=== PATIENT | male | born 2005 | race Caucasian/White ===

== ENCOUNTER 2024-12-08 18:05 | Inpatient (IN) | payer SELFPAY ==
[2024-12-08] VITALS (18 sets, daily range): BP systolic 110–150; BP diastolic 69–92; PULSE 83–124; RESP 10–28; TEMP 36.6–36.9; O2SAT 96–100; BMI 17.7
--- NOTE | 2024-12-08 18:07 | ECG_ITS ---
[facility] Test Date: 2024-12-08 Pat Name: Wali Ritchie Department: Room: Gender: Male Process Development Manager: : 2005 Requested By: Iona Oakley Order Number: [id number] Madi MD: Jacob Wayne M.D. Measurements Intervals [place]tt Rate: 128 P: 72 NH: 124 QRS: 81 QRSD: 97 T: 62 QT: 293 QTc: 428 Interpretive Statements SINUS TACHYCARDIA MODERATE ST DEPRESSION [0.05+ mV ST DEPRESSION] No previous ECG available for comparison Electronically Signed On 12-08-2024 22:51:09 CDT by Jacob Wayne M.D. [email or web address]
--- NOTE | 2024-12-08 18:14 | ED_ITS ---
HPI - Overdose 2 General: Chief Complaint: Overdose Stated Complaint: OD for SI Time Seen by Provider: 12/08/24 18:07 Source: patient Mode of arrival: ambulatory Limitations: no limitations History of Present Illness: 19-year-old male history of subs abuse a long with alcohol use. Patient states he is suicidal and states he tried to overdose last night states he had been drinking alcohol last night along with cocaine he took Percocets and cough syrup and attempt to kill himself at 10 PM last night. Patient states he has been drinking alcohol today as well and is still suicidal. He denies any worse or improving factors denies any vomiting. Related Data Allergies Allergy/AdvReac Type Severity Reaction Status Date / Time No Known Allergies Allergy Verified 12/08/24 18:12 Review of Systems 2 Psych: Reports: depression and suicidal ideation Physical Exam 2 Const: COMMON NORMALS: no acute distress, patient oriented x3 and healthy appearing HENMT: COMMON NORMALS: normocephalic and atraumatic HEAD & SCALP: n ormocephalic and atraumatic Eye: COMMON NORMALS: conjunctivae normal CONJUNCTIVA: Yes conjunctivae normal Neck/C-Spine: COMMON NORMALS: full ROM and supple Chest: COMMONS NORMALS: normal inspection of the chest Resp: COMMON NORMALS: normal respiratory effort, No retractions, No use of accessory muscles and clear to auscultation bilaterally AUSCULTATION: clear to auscultation bilaterally Cardio: COMMON NORMALS: regular rhythm and No murmurs present (Cardio) R ATE: tachycardic RHYTHM: regular rhythm Extremity: COMMON NORMALS: normal to inspection and full ROM Neuro: COMMON NORMALS: patient oriented x3, moves all extremities and no focal motor deficits Psych: COMMON NORMALS: mental status grossly normal, Normal thought process present and cooperative MOOD & AFFECT: Yes depressed mood THOUGHT PROCESS: Normal thought process present THOUGHT CONTENT: Yes Suicidality present Skin: COMMON NORMALS: no rashes or lesions noted and no wounds GENERAL SKIN EXAM: no rashes or lesions noted Course 2 Vital Signs: Vital signs: Vital Signs Temperature 97.9 F 12/08/24 18:09 Pulse Rate 99 12/08/24 19:05 Respiratory Rate 19 H 12/08/24 19:05 Blood Pressure 110/77 12/08/24 19:05 Pulse Oximetry 100 12/08/24 19:05 Oxygen Delivery Me thod Room Air 12/08/24 18:09 MDM - Overdose Medical Decision Making Patient presents here with suicide attempt by overdose. He has no signs of toxic overdose. His heart rate here is improved and is now in the 90s Tylenol level is negative. Blood work is otherwise normal EKG here showed sinus tach heart rate [address] elevation QRS 97 QTc 369. He was quite anxious when he was driving his heart rate has improved here. I did speak to psychiatrist Dr. Tejada patient's medically cleared and on a 96-hour hold will admit the psychiatric samuel Medical Records I reviewed the patient's medical records. Lab Data I reviewed the patient's lab results. 12/08/24 18:15 12/08/24 18:15 Laboratory Results WBC 10.02 10^3/uL (4.5-13.0) 12/08/24 18:15 RBC 4.62 10^6/uL (3.85-5.65) 12/08/24 18:15 Hgb 13.30 g/dL (13.2-15.6) 12/08/24 18:15 Hct 38.8 % (37-53) 12/08/24 18:15 MCV 84.0 fl (82-101) 12/08/24 18:15 MCH 28.8 pg (27-33) 12/08/24 18:15 MCHC 34.3 g/dL (30-55) 12/08/24 18:15 RDW 14.1 % (12.1-15.1) 12/08/24 18:15 Plt Count 311 10^3/cmm (157-399) 12/08/24 18:15 MPV 8.8 fL (7.4-10.4) 12/08/24 18:15 Neut % (Auto) 74.6 % 12/08/24 18:15 Lymph % (Auto) 18.8 % 12/08/24 18:15 [place] % (Auto) 4.7 % 12/08/24 18:15 Eos % (Auto) 1.2 % 12/08/24 18:15 Baso % (Auto) 0.4 % 12/08/24 18:15 Neut # (Auto) 7.48 10^3/uL (1.8-8.0) 12/08/24 18:15 Lymph # (Auto) 1.9 10^3/uL (1.5-6.5) 12/08/24 18:15 [place] # (Auto) 0.5 10^3/uL (0.2-0.9) 12/08/24 18:15 Eos # (Auto) 0.1 10^3/uL (0.0-0.8) 12/08/24 18:15 Baso # (Auto) 0.0 10^3/uL (0.0-0.1) 12/08/24 18:15 Nucleated RBC % (auto) 0 % 12/08/24 18:15 Nucleated RBCs # 0.0 /100WBC 12/08/24 18:15 Sodium 147 mmol/L (136-145) H 12/08/24 18:15 Potassium 3.6 mmol/L (3.5-5.1) 12/08/24 18:15 Chloride 107 mmol/L (98-107) 12/08/24 18:15 Carbon Dioxide 27 mmol/L (22-29) 12/08/24 18:15 Anion Gap 16.6 (5-19) 12/08/24 18:15 BUN 4 mg/dL (6-20) L 12/08/24 18:15 Creatinine 0.5 mg/dL (0.7-1.2) L 12/08/24 18:15 GFR Calculation 212.0 mL/min (90-130) H 12/08/24 18:15 Glucose 107 mg/dL (65-115) 12/08/24 18:15 Calculated Osmolality 301 mOsm/kg (285-295) H 12/08/24 18:15 Calcium 9.3 mg/dL (8.5-10.5) 12/08/24 18:15 Total Bilirubin 0.5 mg/dL (0.15-1.2) 12/08/24 18:15 AST 15 U/L (0-40) 12/08/24 18:15 ALT 10 U/L (0-41) 12/08/24 18:15 Alkaline Phosphatase 75 U/L (40-130) 12/08/24 18:15 Total Protein 7.9 g/dL (6.6-8.7) 12/08/24 18:15 Albumin 4.7 g/dL (3.5-5.2) 12/08/24 18:15 Globulin 3.2 g/dL (1.3-4.6) 12/08/24 18:15 Salicylates 0.6 mg/dL (3-10) L 12/08/24 18:15 Acetaminophen < 5.0 ug/mL (10-30) L 12/08/24 18:15 Ethyl Alcohol 257 mg/dL (0-10) H 12/08/24 18:15 No radiology studies performed this visit EKG Data EKG 1: I personally reviewed and interpreted this EKG as follows: EKG interpretation date: 12/08/24 EKG interpretation time: 18:07 Interpretation: sinus tach hr [address] elevation qrs 97 qtc 369 Discharge Plan Discharge Patient Disposition: Admitted As Inpatient Clinical Impression: Suicide attempt by multiple drug overdose Condition: Stable Coding Level of Care Code ED [employer] for Obi Conley
[2024-12-08 18:29] LABS: Hematocrit 38.8 % (37-53); Hemoglobin 13.30 g/dL (13.2-15.6); Mean Corpuscular HGB Conc 34.3 g/dL (30-55); Mean Corpuscular Hemoglobin 28.8 pg (27-33); Mean Corpuscular Volume 84.0 fl (82-101); Nucleated Red Blood Cells % 0 %; Platelet Count 311 10^3/cmm (157-399); Red Blood Count 4.62 10^6/uL (3.85-5.65); White Blood Count 10.02 10^3/uL (4.5-13.0)
--- NOTE | 2024-12-08 18:41 | PC.NURSE ---
PT REQUESTED THAT THIS NURSE NOTIFY HIS GIRLFRIEND, DEMETRIA HAYES, AND LET HER KNOW THAT HE IS IN THE ER AND GAVE CONSENT FOR THIS NURSE TO TELL HER INFORMATION ABOUT HIS STAY.
[2024-12-08 18:42] LABS: Alanine Aminotransferase 10 U/L (0-41); Albumin Level 4.7 g/dL (3.5-5.2); Alcohol Level 257 mg/dL (0-10); Alkaline Phosphatase 75 U/L (40-130); Anion Gap 16.6 (5-19); Aspartate Amino Transferase 15 U/L (0-40); Blood Urea Nitrogen 4 mg/dL (6-20); Calcium 9.3 mg/dL (8.5-10.5); Carbon Dioxide 27 mmol/L (22-29); Chloride 107 mmol/L (98-107); Creatinine Clr Calc Pharmacy 166.3167; Globulin 3.2 g/dL (1.3-4.6); Glucose 107 mg/dL (65-115); Osmolality Calculated 301 mOsm/kg (285-295); Potassium 3.6 mmol/L (3.5-5.1); Salicylate 0.6 mg/dL (3-10); Sodium 147 mmol/L (136-145); Total Protein 7.9 g/dL (6.6-8.7)
[2024-12-08 18:44] LABS: Acetaminophen < 5.0 ug/mL (10-30)
--- NOTE | 2024-12-08 18:58 | PC.NURSE ---
Involuntary 96 hour hold rights read and reviewed with patient. Patient verbalized understandings. Patient stated Someone needs to call [facility], I am suppose to close the next three nights. You need to let me boss know. This nurse told patient we can take care of that at a later time. Patient verbalized understandings and copy of rights given to patient.
[2024-12-08 20:50] LABS: PCP Screen Urine Negative (Negative)
--- NOTE | 2024-12-08 23:06 | PC.NURSE ---
Pt skin was intact and had no bruising or abrasion. No behavioral issues other than SI
--- NOTE | 2024-12-08 23:08 | PC.ADMIT ---
[facility] Admission Note: The patient,Wali Ritchie,19 y/o, was given written information regarding hospital policies, unit procedures and contact persons. Patient's smoking status: . Vital Signs - 8 hr 12/08/24 18:09 12/08/24 18:42 12/08/24 18:44 Temperature 97.9 F Pulse Rate 124 H 112 H 98 Respiratory Rate 24 H 18 10 L Blood Pressure 150/92 126/70 126/70 Pulse Oximetry 100 100 100 Oxygen Delivery Method Room Air 12/08/24 18:45 12/08/24 18:50 12/08/24 18:55 Temperature Pulse Rate 106 H 110 H 96 Respiratory Rate 17 21 H 18 Blood Pressure 126/70 126/70 126/70 Pulse Oximetry 96 98 99 Oxygen Delivery Method 12/08/24 19:00 12/08/24 19:05 12/08/24 19:10 Temperature Pulse Rate 106 H 99 100 Respiratory Rate 19 H 19 H 28 H Blood Pressure 126/70 110/77 110/77 Pulse Oximetry 100 100 100 Oxygen Delivery Method 12/08/24 19:15 12/08/24 19:20 12/08/24 19:43 Temperature Pulse Rate 105 H 102 H 83 Respiratory Rate 16 17 17 Blood Pressure 110/77 110/77 Pulse Oximetry 99 97 100 Oxygen Delivery Method 12/08/24 19:45 12/08/24 19:50 12/08/24 19:55 Temperature Pulse Rate 83 102 H 86 Respiratory Rate 15 17 16 Blood Pressure Pulse Oximetry 100 100 99 Oxygen Delivery Method 12/08/24 20:00 12/08/24 20:08 12/08/24 20:15 Temperature Pulse Rate 92 Respiratory Rate 16 Blood Pressure 124/78 124/78 Pulse Oximetry 100 Oxygen Delivery Method Room Air 12/08/24 20:23 Temperature 98.5 F Pulse Rate 111 H Respiratory Rate 18 Blood Pressure 120/69 Pulse Oximetry 96 Oxygen Delivery Method Room Air Pt skin was intact and had no bruising or abrasion. No behavioral issues other than SI
[2024-12-09] VITALS: BP 100/56; PULSE 76; RESP 16; TEMP 37.1; O2SAT 99
[2024-12-09 04:00] VITALS: BP 108/62; PULSE 80; RESP 16; TEMP 36.9; O2SAT 97
[2024-12-09 08:00] VITALS: BP 108/62; PULSE 80; RESP 16; TEMP 36.9
[2024-12-09] MEDS: multivitamin therapeutic Tablet 1 TAB PO (08:48)
[2024-12-09 12:00] VITALS: RESP 16
--- NOTE | 2024-12-09 14:11 | P.NPUHP_ITS ---
Providers/Chief Complaint 2 Admitting Physician: Mert Mckeon MD Chief Complaint: OD for SI HPI NPU History of Present Illness Wali Ritchie is a 19 year old male with no previous history of inpatient psychiatric hospitalization who presented to the emergency department with a blood alcohol level of 257. Patient reports that he had taken alcohol, cough syrup, and multiple tablets of Percocet along with his cocaine in an attempt to kill himself on the night of 12/07/2024. The patient had stated that he woke up on 12/08/2024 and continued to drink alcohol and reported feeling suicidal. The patient was admitted involuntarily to the neuropsychiatric unit for further evaluation and treatment. He reports a long history of depression beginning since the age of 12 at the time which his mother had from cancer. He reports currently having low energy and low motivation. He reports having problems with managing anxiety. He endorses feelings of hopelessness and worthlessness. He reports having sleep continuity disruption. He reports no previous suicide attempts. He had reported that he feels that life is stressful. He states that he had recently been put on probation for a DUI in July 2024 and reports concerns about going to penitentiary. The patient reports having problems with chronic worry. He reports feeling watched and judged in specific public places. He reports no clear agoraphobia. He does report having problems with concentration and memory. The patient endorses significant substance use beginning at the age of 16 with marijuana. He reports that soon afterwards, he proceeded with using Xanax cocaine and opiates. He reports intranasal Percocet for several years. He reports the longest period of sobriety off of opiates was only a few days. He had reported a past history of opiate withdrawal symptoms and continues to report cravings for opiates. He had reported having used opiates to avoid withdrawal symptoms from opiates. He also reports having binge alcohol use with some reports of an increase in tolerance. He had endorsed a history of blackouts from alcohol use but denied any clear alcohol related withdrawal symptoms. He had reported a past history of seizures secondary from benzodiazepine withdrawal as well. He reports infrequent use of stimulants. He denied any history of psychosis or moe. He had reported that his tolerance for alcohol was relatively high. He had reported a period of sobriety off of alcohol for up to a few months. He states that now that he we will be forced to get additional routine testing he will no longer use illicit substances. Psychiatric history: He has no prior year of inpatient psychiatric hospitalizations with no prior history of suicide attempts. He reports 2 years ago having been treated for depression on Zoloft and Prozac but stated that he had become more agitated and psychotic off of these medications. He had also reported having used fentanyl and cocaine during that time as well. He had also received psychotherapy on a weekly basis a few years ago but is currently not receiving any outpatient treatment. Substance abuse history: As stated above. He had endorsed a more significant history of fentanyl abuse as well as cocaine abuse 2 years ago but reports fairly consistent use of opiates in some fashion over the past few years. He reports having been placed in a detox facility at the age of 17 for 1 week in [place]. Medical history: None reported Surgical history: None Allergies: No known drug allergies Medications: None Family psychiatric history: Alcoholism and bipolar disorder on the maternal side of the family. He reports his father had been diagnosed with bipolar disorder as well.] Legal history: No prior history of incarceration but recent charges of DUI Social history: The patient was raised in [place]. He was raised by his mother as his parents were when he was only 6 months old. He has a half sister from his father and a half brother from his mother. He had reported having a turbulent childhood. He reported no academic problems and stated that he graduated high school in [place] with a 3.6 grade point average and tried college but reported his drug use had been much more severe and he was forced to drop out. He has been living with his father since the age of 15 currently in [place] while working at [employer]. He has never been and does not report having any children. He did not endorse any history of trauma. Meds NPU Allergies Allergy/AdvReac Type Severity Reaction Status Date / Time No Known Allergies Allergy Verified 12/08/24 18:12 Mental Status Exam 2 MSE Comments: The patient is a casually dressed male with disheveled hair but otherwise normal hygiene. There was no evidence of any abnormal involuntary motor movements, tics, or tremors appreciated. His speech was normal in regards to rate, rhythm, and prosody. His mood was described as depressed. His affect was restricted in range and mood congruent. His thought process was linear, logical, and goal- directed. His thought content revealed suicidal ideation with an acknowledgment of having overdosed on his medications. He denied any homicidal ideation. He did not appear to be responding to internal stimuli. There was no evidence of any delusional thinking. He was alert and oriented to person, place, time, and situation. His recent and remote memory appear grossly intact. His insight is poor. His judgment is poor. His impulse control appeared limited. Vitals/I&O/Wt Last Vital Signs Temp 98.4 F 12/09/24 08:00 Pulse 80 12/09/24 08:00 Resp 16 12/09/24 12:00 BP 108/62 12/09/24 08:00 Pulse Ox 97 12/09/24 04:00 O2 Del Method Room Air 12/09/24 08:00 Weight last 48 hrs Weight 49.895 kg Data NPU 12/08/24 18:15 12/08/24 18:15 A&P Assessment and plan 1. MDD (major depressive disorder), recurrent severe, without psychosis: 2. Opioid dependence: 3. Suicide attempt by multiple drug overdose: 4. Alcohol abuse: Plan: 19-year-old male admitted with suicidal ideation and a history of depression, BAL of 257 along with a significant history of opiate abuse and alcohol abuse currently on no medications at this time. #1.? Engage patient in individual milieu and group therapy.? #2? Encourage sober living treatment after discharge at the highest level of care to which he is willing to commit. #3??? CIWA for alcohol withdrawal #4?? TO-15 minute checks? #5?? Will attempt to gather collateral information #6 Add Suboxone 8/2mg SL for opioid dependence. #7 Patient likely good candidate for inpatient substance abuse treatment. PDMP PDMP Reviewed: Not Reviewed Involuntary Hold Information 2 Hold Status: Legal Status: 96 Hour Hold Date/Time Hold Expires: 12/14/24 @ 18:27 Attestations NPU 2 Medical Necessity Statement*: Inpatient hospitalization is medically necessary and deemed to ?be ?the clinically appropriate intervention ?at this time.? We will monitor/initiate medications and make changes as indicated.? The patient will be in the hospital for over 2 midnights.? The patient?s likely length of stay 4-6 days. Coding Level of Care Code Acute Code for Chg Fwd Diagnoses MDD (major depressive disorder), recurrent severe, without psychosis F33.2 Opioid dependence F11.20 Suicide attempt by multiple drug overdose T50.912A Alcohol abuse F10.10
[2024-12-09 16:00] VITALS: RESP 16
[2024-12-09] MEDS: buprenorphine-naloxone 4-1 mg Film 1 EACH SUBLINGUAL (17:29)
[2024-12-09 20:00] VITALS: BP 122/86; PULSE 87; RESP 18; TEMP 36.9; O2SAT 94
[2024-12-10 06:31] VITALS: BP 88/52; PULSE 87; RESP 16; TEMP 36.3; O2SAT 96
[2024-12-10] MEDS: multivitamin therapeutic Tablet 1 TAB PO (08:44)
[2024-12-10] MEDS: buprenorphine-naloxone 4-1 mg Film 1 EACH SUBLINGUAL (08:45)
[2024-12-10 12:00] VITALS: BP 100/82; PULSE 88
--- NOTE | 2024-12-10 13:11 | W.PM.NPUDCS ---
Diagnoses at Discharge Discharge Diagnosis 1. MDD (major depressive disorder), recurrent severe, without psychosis: 2. Opioid dependence: 3. Suicide attempt by multiple drug overdose: 4. Alcohol abuse: Reason for Visit Reason for Visit: OD for SI Brief History: History of Present Illness Wali Ritchie is a 19 year old male with no previous history of inpatient psychiatric hospitalization who presented to the emergency department with a blood alcohol level of 257. Patient reports that he had taken alcohol, cough syrup, and multiple tablets of Percocet along with his cocaine in an attempt to kill himself on the night of 12/07/2024. The patient had stated that he woke up on 12/08/2024 and continued to drink alcohol and reported feeling suicidal. The patient was admitted involuntarily to the neuropsychiatric unit for further evaluation and treatment. He reports a long history of depression beginning since the age of 12 at the time which his mother had from cancer. He reports currently having low energy and low motivation. He reports having problems with managing anxiety. He endorses feelings of hopelessness and worthlessness. He reports having sleep continuity disruption. He reports no previous suicide attempts. He had reported that he feels that life is stressful. He states that he had recently been put on probation for a DUI in July 2024 and reports concerns about going to nursing home. The patient reports having problems with chronic worry. He reports feeling watched and judged in specific public places. He reports no clear agoraphobia. He does report having problems with concentration and memory. The patient endorses significant substance use beginning at the age of 16 with marijuana. He reports that soon afterwards, he proceeded with using Xanax cocaine and opiates. He reports intranasal Percocet for several years. He reports the longest period of sobriety off of opiates was only a few days. He had reported a past history of opiate withdrawal symptoms and continues to report cravings for opiates. He had reported having used opiates to avoid withdrawal symptoms from opiates. He also reports having binge alcohol use with some reports of an increase in tolerance. He had endorsed a history of blackouts from alcohol use but denied any clear alcohol related withdrawal symptoms. He had reported a past history of seizures secondary from benzodiazepine withdrawal as well. He reports infrequent use of stimulants. He denied any history of psychosis or moe. He had reported that his tolerance for alcohol was relatively high. He had reported a period of sobriety off of alcohol for up to a few months. He states that now that he we will be forced to get additional routine testing he will no longer use illicit substances. Psychiatric history: He has no prior year of inpatient psychiatric hospitalizations with no prior history of suicide attempts. He reports 2 years ago having been treated for depression on Zoloft and Prozac but stated that he had become more agitated and psychotic off of these medications. He had also reported having used fentanyl and cocaine during that time as well. He had also received psychotherapy on a weekly basis a few years ago but is currently not receiving any outpatient treatment. Substance abuse history: As stated above. He had endorsed a more significant history of fentanyl abuse as well as cocaine abuse 2 years ago but reports fairly consistent use of opiates in some fashion over the past few years. He reports having been placed in a detox facility at the age of 17 for 1 week in [place]. Medical history: None reported Surgical history: None Allergies: No known drug allergies Medications: None Family psychiatric history: Alcoholism and bipolar disorder on the maternal side of the family. He reports his father had been diagnosed with bipolar disorder as well.] Legal history: No prior history of incarceration but recent charges of DUI Social history: The patient was raised in [place]. He was raised by his mother as his parents were when he was only 6 months old. He has a half sister from his father and a half brother from his mother. He had reported having a turbulent childhood. He reported no academic problems and stated that he graduated high school in [place] with a 3.6 grade point average and tried college but reported his drug use had been much more severe and he was forced to drop out. He has been living with his father since the age of 15 currently in [place] while working at [employer]. He has never been and does not report having any children. He did not endorse any history of trauma. Hospital Course Hospital Course The patient had provided a significant history strongly suggesting opiate dependence along with alcohol abuse. He was started on Suboxone at 8 mg / 2 mg sublingually daily with no side effects noted and no cravings for opiates reported. The patient did not wish to consider medications to target depression at this time. He was agreeable to considering psychotherapy and outpatient substance abuse management. During the hospitalization, the patient had routine laboratory studies which were within normal limits except for a few outliers.? Additionally, there was a general medical evaluation which was also within normal limits and revealed no new acute processes.? At the time of discharge, lethality was denied and psychosis was absent.? Mood and anxiety were well managed.? The patient endorsed a plan to avoid all drugs of abuse and follow up with the aftercare recommendations of the treatment team.? The patient was evaluated and deemed to be absent credible lethality and had achieved the maximum benefit from an inpatient hospitalization, and so was discharged. ? Involuntary Hold Information Hold Status: Legal Status: 96 Hour Hold Date/Time Hold Expires: 12/14/24 @ 18:27 Mental Status Exam MSE Comments: The patient is a casually dressed male with normal hygiene and normal gait. There was no evidence of any abnormal involuntary motor movements, tics, or tremors appreciated. His speech was normal in regards to rate, rhythm, and prosody. His mood was described as okay. His affect was less restricted on discharge. His thought process was linear, logical, and goal-directed. His thought content revealed no suicidal or homicidal ideation. He did not appear to be responding to internal stimuli. There was no evidence of any delusional thinking. He was alert and oriented to person, place, time, and situation. His recent and remote memory appear grossly intact. His insight is limited. His judgment is better. His impulse control appeared improved. Discharge Data Studies Completed and Pending: Laboratory Results WBC 10.02 10^3/uL (4. 5-13.0) 12/08/24 18:15 RBC 4.62 10^6/uL (3.8 5-5.65) 12/08/24 18:15 Hgb 13.30 g/dL (13.2- 15.6) 12/08/24 18:15 Hct 38.8 % (37-53) 12/08/24 18:15 MCV 84.0 fl (82-101) 12/08/24 18:15 MCH 28.8 pg (27-33) 12/08/24 18:15 MCHC 34.3 g/dL (30-55) 12/08/24 18:15 RDW 14.1 % (12.1-15.1 ) 12/08/24 18:15 Plt Count 311 10^3/cmm (157 -399) 12/08/24 18:15 MPV 8.8 fL (7.4-10.4) 12/08/24 18:15 Neut % (Auto) 74.6 % 12/08/24 18:15 Lymph % (Auto) 18.8 % 12/08/24 18:15 [place] % (Auto) 4.7 % 12/08/24 18:15 Eos % (Auto) 1.2 % 12/08/24 18:15 Baso % (Auto) 0.4 % 12/08/24 18:15 Neut # (Auto) 7.48 10^3/uL (1.8 -8.0) 12/08/24 18:15 Lymph # (Auto) 1.9 10^3/uL (1.5- 6.5) 12/08/24 18:15 [place] # (Auto) 0.5 10^3/uL (0.2- 0.9) 12/08/24 18:15 Eos # (Auto) 0.1 10^3/uL (0.0- 0.8) 12/08/24 18:15 Baso # (Auto) 0.0 10^3/uL (0.0- 0.1) 12/08/24 18:15 Nucleated RBC % (a uto) 0 % 12/08/24 18:15 Nucleated RBCs # 0.0 /100WBC 12/08/24 18:15 Sodium 147 mmol/L (136-1 45) H 12/08/24 18:15 Potassium 3.6 mmol/L (3.5-5 .1) 12/08/24 18:15 Chloride 107 mmol/L (98-10 7) 12/08/24 18:15 Carbon Dioxide 27 mmol/L (22-29) 12/08/24 18:15 Anion Gap 16.6 (5-19) 12/08/24 18:15 BUN 4 mg/dL (6-20) L 12/08/24 18:15 Creatinine 0.5 mg/dL (0.7-1. 2) L 12/08/24 18:15 GFR Calculation 212.0 mL/min (90- 130) H 12/08/24 18:15 Glucose 107 mg/dL (65-115 ) 12/08/24 18:15 Calculated Osmolal ity 301 mOsm/kg (285- 295) H 12/08/24 18:15 Calcium 9.3 mg/dL (8.5-10 .5) 12/08/24 18:15 Total Bilirubin 0.5 mg/dL (0.15-1 .2) 12/08/24 18:15 AST 15 U/L (0-40) 12/08/24 18:15 ALT 10 U/L (0-41) 12/08/24 18:15 Alkaline Phosphata se 75 U/L (40-130) 12/08/24 18:15 Total Protein 7.9 g/dL (6.6-8.7 ) 12/08/24 18:15 Albumin 4.7 g/dL (3.5-5.2 ) 12/08/24 18:15 Globulin 3.2 g/dL (1.3-4.6 ) 12/08/24 18:15 Salicylates 0.6 mg/dL (3-10) L 12/08/24 18:15 Urine Opiates Scre en Negative ng/mL (N egative) 12/08/24 20:10 Acetaminophen < 5.0 ug/mL (10-3 0) L 12/08/24 18:15 Ur Barbiturates Sc reen Negative ng/mL (N egative) 12/08/24 20:10 Ur Phencyclidine S crn Negative ng/mL (N egative) 12/08/24 20:10 Ur Amphetamines Sc reen Negative ng/mL (N egative) 12/08/24 20:10 U Benzodiazepines Scrn Negative ng/mL (N egative) 12/08/24 20:10 Urine Cocaine Scre en Positive ng/mL (N egative) H 12/08/24 20:10 U Marijuana (THC) Screen Positive ng/mL (N egative) H 12/08/24 20:10 Ethyl Alcohol 257 mg/dL (0-10) H 12/08/24 18:15 Vitals: Last Vital Signs Temp 97.4 F L 12/10/24 06:31 Pulse 88 12/10/24 12:00 Resp 16 12/10/24 06:31 BP 100/82 12/10/24 12:00 Pulse Ox 96 12/10/24 06:31 O2 Del Method Room Air 12/10/24 06:31 Discharge Plan Discharge Patient Disposition: Home Condition: Stable Prescriptions: New buprenorphine-naloxone 8-2 mg tablet, sublingual 1 tab sublingual DAILY Qty: 14 0RF Discharge Order = DC NOW: Discharge Order (Routine); Ordered 12/10/24 Ordered By: Mert Mckeon Referrals: [facility] [Other] - 4-7 days Referral Note: Inpatient and outpatient services. Call for a phone interview. [facility] [Outside, Behavioral Health] - 12/14/24 7:30 am Referral Note: Assessment appointment with Danette García Discharge Diet: Usual diet Discharge Activity: Resume usual activity Patient Instructions: Abuse of Alcohol (DC), Opioid Safety, Patient Portal & Zaid Instructions Discharge Attestations NPU Time Spent in Discharge Care*: less than 30 min Specific Discharge Activities: Specific discharge activities: educating patient, discussing with test case developer/social workers/dc planners and documenting/other paperwork Coding Level of Care Code Acute Code for Chg Fwd Diagnoses MDD (major depressive disorder), recurrent severe, without psychosis F33.2 Opioid dependence F11.20 Suicide attempt by multiple drug overdose T50.912A Encounter type: initial encounter Alcohol abuse F10.10
[2024-12-10 13:19] VITALS: BP 108/82; PULSE 88; RESP 16; TEMP 36.3; O2SAT 96
[2024-12-10 13:20] VITALS: BP 108/82; PULSE 88; RESP 16; TEMP 36.3; O2SAT 96
== END 2024-12-10 14:30 | disposition home or self-care (01) | DRG 885 ==
LOC: ER 19:32 → NP 19:37
PROVIDERS: Admitting Provider Psychiatry & Neurology Psychiatry; Emergency Provider Emergency Medicine; Visit Provider Psychiatry & Neurology Psychiatry
DX: F33.2 Major depressive disorder, recurrent severe without psychotic features (principal); F11.20 Opioid dependence, uncomplicated; T40.5X2A Poisoning by cocaine, intentional self-harm, initial encounter; T40.602A Poisoning by unspecified narcotics, intentional self-harm, initial encounter; T51.0X2A Toxic effect of ethanol, intentional self-harm, initial encounter; F10.129 Alcohol abuse with intoxication, unspecified; Y90.8 Blood alcohol level of 240 mg/100 ml or more; F14.90 Cocaine use, unspecified, uncomplicated
CPT/HCPCS: 80053; 80306; 80307; 85025; 93005; 97150; 97165; 99285; J0573; J7030; J9999